=== PATIENT | female | born 1950 | race Caucasian/White ===

== ENCOUNTER 2017-07-04 15:22 | Emergency (ER) | payer MEDICARE, BC ==
[2017-07-04] MEDS ORDERED: LIDOCAINE HCL 2% MPF SOL ONE (15:31)
[2017-07-04] MEDS ORDERED: BACITRACIN 500 U/GM OIN TOP ONE ×2 (16:13→16:16)
[2017-07-04] MEDS ORDERED: TDAP VACCINE 0.5 ML SUS IM ONE ×2 (16:16→16:18)
[2017-07-04] MEDS ORDERED: LIDOCAINE HCL 2% MPF SOL SC ONE (16:16)
[2017-07-04 16:38] VITALS: BP 145/66; PULSE 75; RESP 18; TEMP 98.5; O2SAT 99
== END 2017-07-04 16:35 | disposition home or self-care (01) | DRG 605 ==
LOC: ED 15:22
DX: S81.012A Laceration without foreign body, left knee, initial encounter (principal); W19.XXXA Unspecified fall, initial encounter
CPT/HCPCS: 90715; 99284; A9270-GY